=== PATIENT | male | born 1975 ===

== ENCOUNTER 2024-09-27 07:50 | Emergency (ER) | payer BC | END 2024-09-27 12:09 | disposition home or self-care (01) | LOC: MW.ED 07:50 | DX: M25.551 Pain in right hip (principal); Z79.51 Long term (current) use of inhaled steroids; Z88.6 Allergy status to analgesic agent; Z75.3 Unavailability and inaccessibility of health-care facilities; X58.XXXA Exposure to other specified factors, initial encounter | CPT/HCPCS: 73502-26-RT; 73502-RT; 73700-26-RT; 73700-RT; 99282; 99284 ==